=== PATIENT | female | born 1965 | race Caucasian/White ===

== ENCOUNTER 2020-06-25 15:16 | Outpatient (REF) | payer SELFPAY ==
[2020-06-27 19:06] LABS: SARS-CoV-2 RNA Undetected (Undetected)
== END 2020-06-25 15:36 ==
LOC: NCHCN 15:16
PROVIDERS: PCP Nurse Practitioner Family; Visit Provider Family Medicine
DX: Z20.828 Contact with and (suspected) exposure to other viral communicable diseases (principal)
CPT/HCPCS: U0003

== ENCOUNTER 2020-10-03 07:41 | Outpatient (REF) | payer OTHER, SELFPAY ==
[2020-10-04 15:07] LABS: SARS-CoV-2 RNA Not Detected (NotDetected); SARS-CoV-2 RNA Source Nasal/Nares
== END 2020-10-03 08:01 ==
LOC: NCHCN 07:41
PROVIDERS: PCP Nurse Practitioner Family; Visit Provider Nurse Practitioner Family
DX: Z11.59 Encounter for screening for other viral diseases (principal)
CPT/HCPCS: U0003

== ENCOUNTER 2023-11-06 16:45 | Outpatient (REF) | payer OTHER, SELFPAY ==
[2023-11-06 21:07] LABS: Absolute Basophil Count 0.02 10^3/uL (0.0-0.2); Absolute Eosinophil Count 0.09 10^3/uL (0.0-0.7); Absolute Lymphocyte Count 1.99 10^3/uL (1.2-3.4); Absolute Monocyte Count 0.35 10^3/uL (0.1-0.8); Absolute Neutrophil Count 2.55 10^3/uL (1.2-6.7); Basophils % 0.4; Eosinophils % 1.8; HCT 40.5 % (36.0-46.0); HGB 13.7 g/dL (11.2-15.7); Lymphocytes % 39.8; MCH 30.6 pg (27.0-33.0); MCHC 33.8 % (32.0-36.0); MCV 91 fL (80-95); MPV 10.6 fL (8.0-11.0); Platelet Count 234 10^3/uL (130-400); RBC 4.47 10^6/uL (3.93-5.22); RDW 12.5 % (11.7-14.6)
[2023-11-06 21:44] LABS: ALT 24 U/L (14-59); AST 22 U/L (15-37); Albumin 4.1 g/dL (3.4-5.0); Alkaline Phosphatase 66 U/L (46-116); Anion Gap 6.7 mmol/L (3-11); BUN 14 mg/dL (7-18); Bilirubin, Total 0.5 mg/dL (0.2-1.0); CO2 30.3 mmol/L (21.0-32.0); Calcium 9.2 mg/dL (8.5-10.1); Calculated LDL 160 mg/dL (<100); Chloride 105 mmol/L (98-107); Cholesterol 273 mg/dL (<200); Glucose 96 mg/dL (74-106); HDL Cholesterol 89 mg/dL (40-60); Potassium 3.8 mmol/L (3.5-5.1); Sodium 142 mmol/L (136-145); Total Protein 7.2 g/dL (6.4-8.2); Triglyceride 120 mg/dL (<150); Vitamin B12 322 pg/mL (193-986)
[2023-11-06 21:57] LABS: C-Reactive Protein 0.22 mg/dL (0.0-0.3)
== END 2023-11-06 16:46 | disposition home or self-care (01) ==
LOC: NCHCN 16:45
PROVIDERS: PCP Nurse Practitioner Family; Visit Provider Family Medicine
DX: R06.09 Other forms of dyspnea (principal); E53.8 Deficiency of other specified B group vitamins; M25.59 Pain in other specified joint; Z13.220 Encounter for screening for lipoid disorders
CPT/HCPCS: 80053; 80061; 82607; 85025; 86140

== ENCOUNTER 2024-05-02 16:48 | Outpatient (REF) | payer OTHER, SELFPAY ==
--- NOTE | 2024-05-02 16:00 | PAPFT_PTH ---
PATIENT: Tiffany Hernandez LOC: [facility] U#:[id number] AGE/SX: 59/F ROOM: RE05/02/[address]: Anabella Trujillo : 1965 BED: DIS: 05/02/2024 SPEC #: [id number] RECD: 05/03/24 13:13 STATUS: [facility] #: [id number] PUMA: 05/02/24 16:[address]: Anabella Trujillo DEPT: [facility] Cytology RECD BY: Jeanette Sun ENTERED: 05/03/24 13:14 SP TYPE: PAPFT OTHR DR: Elba Page Tissues: 1 - CX/ENDOCX FOR PAP SMEARS Procedures: PAP THIN PREP/[facility] Screening HPV DNA PROBE Comments: [id number] (HPV 16 & 18/45)
== END 2024-05-02 16:49 | disposition home or self-care (01) ==
LOC: NCHCN 16:48
PROVIDERS: PCP Nurse Practitioner Family; Visit Provider Family Medicine
DX: Z12.4 Encounter for screening for malignant neoplasm of cervix (principal); Z11.51 Encounter for screening for human papillomavirus (HPV)
CPT/HCPCS: 88142; 87624